=== PATIENT | female | born 1990 | race Two or more races ===

== ENCOUNTER → 2023-08-19 | Emergency (ER) | payer OTHER ==
[~2023-08-19] VITALS: Ht 149.9 cm; Wt 52.2 kg
[~2023-08-19] MED LIST: DOXYLAMINE-PYR1 EACH PO; FAMOTIDINE/PF 20 MG in 0.9 % SODIUM CHLORIDE 8 ML IV PUSH STA; ONDANSETRON HCL 2 MG/ML VIAL IV ONE; PRENATAL VITAM1 EAC7 PO; RINGERS SOLUTION,LACTATED 1,000 ML IV SCH
[2023-08-19 17:32] LABS: HEMATOCRIT 36.5 % (36.0-45.00); MEAN CELL VOLUME 89.7 fL (80.00-100.00); MEAN CORPUSCULAR HEMOGLOBIN 31.9 pg (27.00-32.0); MEAN CORPUSCULAR HGB CONC 35.6 g/dl (32.0-36.0); PLATELET COUNT 259 K/uL (150-450); RED BLOOD COUNT 4.06 M/uL (4.00-6.00); RED CELL DISTRIBUTION WIDTH 12.8 % (11.5-14.5)
[2023-08-19 17:51] LABS: ALBUMIN 3.7 gm/dL (3.4-5.0); BILIRUBIN TOTAL 0.84 mg/dL (0.3-1.2); CALCIUM 9.3 mg/dL (8.5-10.1); CREATININE SERUM 0.42 mg/dL (0.55-1.02); GFR 175.98; GLOBULINA 3.8 G/DL (2.4-3.5); POTASSIUM 3.4 mEq/L (3.5-5.1); TOTAL PROTEIN 7.5 gm/dL (6.4-8.2)
[2023-08-19 18:37] LABS: PH,URINE 6.5 (5.0-8.0); URINE APPEARANCE Cloudy; URINE BILIRRUBIN Negative (NEGATIVE); URINE BLOOD Negative; URINE COLOR Yellow; URINE GLUCOSE Negative (NEGATIVE); URINE LEUKOCYTE Negative; URINE NITRATE Negative; URINE PROTEIN Negative (NEGATIVE); URINE UROBILINOGEN 0.2 E.U./dl
[2023-08-19 18:38] LABS: URINE BACTERIA 1466.5 uL (0.0-1933); URINE EPITHELIAL CELLS 102.6 uL (0.0-38.8); URINE RBC 4.3 uL (0.0-20.8); URINE WBC 24.1 uL (0.0-23.2)
== END | disposition home or self-care (01) ==
LOC: ER 16:16
PROVIDERS: General Practice
DX: O21.0 Mild hyperemesis gravidarum (principal); Z3A.10 10 weeks gestation of pregnancy

== ENCOUNTER 2023-08-28 08:13 | Outpatient (CLI) | payer OTHER ==
[~2023-08-28 08:13] MED LIST changes: -FAMOTIDINE/PF 20 MG in 0.9 % SODIUM CHLORIDE 8 ML IV PUSH STA; -ONDANSETRON HCL 2 MG/ML VIAL IV ONE; -RINGERS SOLUTION,LACTATED 1,000 ML IV SCH
== END 2023-08-28 08:16 | disposition home or self-care (01) ==
LOC: PRENATAL 08:13
PROVIDERS: ATTEND Obstetrics & Gynecology Maternal & Fetal Medicine
DX: O36.80X0 Pregnancy with inconclusive fetal viability, not applicable or unspecified (principal); Z36.82 Encounter for antenatal screening for nuchal translucency; Z36.9 Encounter for antenatal screening, unspecified; Z3A.11 11 weeks gestation of pregnancy

== ENCOUNTER 2024-01-20 09:05 | Outpatient (CLI) | payer OTHER | END 2024-01-20 09:06 | disposition home or self-care (01) | LOC: PRENATAL 09:05 | PROVIDERS: ATTEND Obstetrics & Gynecology Maternal & Fetal Medicine | DX: O26.843 Uterine size-date discrepancy, third trimester (principal); O36.8130 Decreased fetal movements, third trimester, not applicable or unspecified; O99.013 Anemia complicating pregnancy, third trimester; Z3A.32 32 weeks gestation of pregnancy ==

== ENCOUNTER 2024-03-15 22:07 | Inpatient (IN) | payer OTHER ==
[2024-03-06 13:45] LABS: PH,URINE 6.5 (5.0-8.0); URINE APPEARANCE Cloudy; URINE BILIRRUBIN Negative (NEGATIVE); URINE BLOOD Negative; URINE COLOR Yellow; URINE GLUCOSE Negative (NEGATIVE); URINE KETONE Negative (NEGATIVE); URINE LEUKOCYTE Negative; URINE NITRATE Negative; URINE PROTEIN Negative (NEGATIVE); URINE UROBILINOGEN 0.2 E.U./dl
[2024-03-06 13:46] LABS: HEMATOCRIT 34.3 % (36.0-45.00); HEMOGLOBIN 11.7 g/dL (12.0-15.00); MEAN CELL VOLUME 90.9 fL (80.00-100.00); MEAN CORPUSCULAR HEMOGLOBIN 31.1 pg (27.00-32.0); MEAN CORPUSCULAR HGB CONC 34.2 g/dl (32.0-36.0); PLATELET COUNT 211 K/uL (150-450); RED BLOOD COUNT 3.77 M/uL (4.00-6.00); RED CELL DISTRIBUTION WIDTH 13.5 % (11.5-14.5)
[2024-03-06 13:49] LABS: URINE BACTERIA 341.4 uL (0.0-1933); URINE WBC 14.8 uL (0.0-23.2)
[2024-03-06 14:03] LABS: URINE CAST 0.15 uL (0.0-1.40); URINE RBC 1.6 uL (0.0-20.8)
[2024-03-06 14:05] LABS: INR 0.94; PARTIAL THROMBOPLASTIN TIME 24.5 SECONDS (22.0-34.0); PROTHROMBIN TIME 10.3 SECONDS (9.0-11.5)
[2024-03-06 14:09] LABS: ALBUMIN 2.7 gm/dL (3.4-5.0); BILIRUBIN TOTAL 0.4 mg/dL (0.3-1.2); CALCIUM 8.8 mg/dL (8.5-10.1); CREATININE SERUM 0.43 mg/dL (0.55-1.02); GFR 171.26; GLOBULINA 3.7 G/DL (2.4-3.5); POTASSIUM 4.1 mEq/L (3.5-5.1); TOTAL PROTEIN 6.4 gm/dL (6.4-8.2)
[~2024-03-15] VITALS: Ht 149.9 cm; Wt 63.0 kg
[2024-03-15 21:12] VITALS: BP 123/75
[2024-03-15 23:15] VITALS: BP 138/89
[2024-03-16] VITALS (12 sets, daily range): BP systolic 106–141; BP diastolic 61–86; O2SAT 100
[2024-03-16] MEDS ORDERED: OXYTOCIN 20 UNITS/1000ML RL PIGGYBAG IV ONE (02:22)
[2024-03-16] MEDS ORDERED: ERYTHROMYCIN BASE OPHT 1GM EACH TUBE OP ONE ×2 (02:22→10:30)
[2024-03-16] MEDS ORDERED: CHLORHEXIDINE GLUCONATE 120 ML BOTTLE TOP ONE (02:22)
[2024-03-16] MEDS ORDERED: LIDOCAINE HCL 1% 10ML VIAL ONE (02:22)
[2024-03-16] MEDS ORDERED: OXYTOCIN 20 UNITS/500ML RL PIGGYBAG IV ONE (07:55)
[2024-03-16] MEDS ORDERED: LIDOCAINE HCL 1% 10ML VIAL IJ ONE (10:30)
[2024-03-16] MEDS ORDERED: ACETAMINOPHEN 500 MG GEL..CAP PO PRN (12:00)
[2024-03-16] MEDS ORDERED: CHLORHEXIDINE GLUCONATE 120 ML BOTTLE TOP SCH (12:30)
[2024-03-16] MEDS ORDERED: OXYTOCIN 1,000 ML IV SCH (12:30)
[2024-03-16] MEDS ORDERED: OXYTOCIN 500 ML IV SCH (13:45)
[2024-03-16] MEDS ORDERED: BENZOCAINE/MENTHOL 90 ML BOTTLE TOP PRN (17:00)
[2024-03-16 23:17] LABS: HEMATOCRIT 26.9 % (36.0-45.00); MEAN CELL VOLUME 88.8 fL (80.00-100.00); MEAN CORPUSCULAR HGB CONC 34.8 g/dl (32.0-36.0); PLATELET COUNT 172 K/uL (150-450); RED BLOOD COUNT 3.02 M/uL (4.00-6.00); RED CELL DISTRIBUTION WIDTH 13.9 % (11.5-14.5)
[2024-03-16 23:19] LABS: HEMOGLOBIN 9.3 g/dL (12.0-15.00); MEAN CORPUSCULAR HEMOGLOBIN 30.7 pg (27.00-32.0)
[2024-03-17] VITALS: BP 106/67
[2024-03-17 08:00] VITALS: BP 101/66
[2024-03-17] MEDS ORDERED: PNV,CALCIUM 72/IRON/FOLIC ACID 1 TAB TABLET PO SCH (09:00)
[2024-03-17] MEDS ORDERED: DOCUSATE SODIUM 100MG CAP PO SCH (17:55)
[2024-03-17] MEDS ORDERED: HYDROCORTISONE ACETATE 25 MG/SUPP.RECT SUPP.RECT RECTAL SCH (17:57)
[2024-03-17] MEDS ORDERED: IBUprofen 800 MG TABLET PO PRN (18:00)
[2024-03-17 19:45] VITALS: BP 122/83
[2024-03-18] VITALS: BP 116/73
[2024-03-18 08:53] VITALS: BP 113/76
== END 2024-03-18 15:26 | disposition home or self-care (01) | DRG 807 ==
LOC: LDR 22:07 → OB/GYN 03-16 15:08 → LDR 03-16 15:22 → OB/GYN 03-18 15:26
PROVIDERS: Obstetrics & Gynecology; ADMIT Student in an Organized Health Care Education/Training Program; ATTEND Student in an Organized Health Care Education/Training Program
PROC: 4A1HXCZ Monitoring of Products of Conception, Cardiac Rate, External Approach (ICD-10-PCS; 2024-03-15)
PROC: 10E0XZZ Delivery of Products of Conception, External Approach (ICD-10-PCS; principal; 2024-03-16)
PROC: 0W8NXZZ Division of Female Perineum, External Approach (ICD-10-PCS; 2024-03-16)
DX: O80 Encounter for full-term uncomplicated delivery (principal); Z37.0 Single live birth; Z3A.39 39 weeks gestation of pregnancy; Z20.822 Contact with and (suspected) exposure to COVID-19

== ENCOUNTER 2024-08-28 22:08 | Inpatient (IN) | payer OTHER ==
[~2024-08-28] VITALS: Ht 149.9 cm; Wt 52.2 kg
[2024-08-28] MEDS ORDERED: FAMOTIDINE/PF 20 MG in 0.9 % SODIUM CHLORIDE 8 ML IV PUSH STA (22:56)
[2024-08-28] MEDS ORDERED: KETOROLAC TROMETHAMINE 30 MG VIAL IV ONE (23:00)
[2024-08-28] MEDS ORDERED: 0.9 % SODIUM CHLORIDE 1,000 ML IV SCH (23:00)
[2024-08-28] MEDS ORDERED: ONDANSETRON HCL 2 MG/ML VIAL IV ONE (23:00)
[2024-08-28] MEDS ORDERED: FAMOTIDINE/PF 20 MG/2 ML VIAL ONE (23:10)
[2024-08-28] MEDS ORDERED: ONDANSETRON HCL 2 MG/ML VIAL ONE (23:10)
[2024-08-28] MEDS ORDERED: KETOROLAC TROMETHAMINE 30 MG VIAL ONE (23:10)
[2024-08-29 00:05] LABS: HEMATOCRIT 34.8 % (36.0-45.00); MEAN CELL VOLUME 86.3 fL (80.00-100.00); MEAN CORPUSCULAR HEMOGLOBIN 29.7 pg (27.00-32.0); MEAN CORPUSCULAR HGB CONC 34.4 g/dl (32.0-36.0); PLATELET COUNT 283 K/uL (150-450); RED BLOOD COUNT 4.04 M/uL (4.00-6.00); RED CELL DISTRIBUTION WIDTH 15.2 % (11.5-14.5)
[2024-08-29 00:09] LABS: ALBUMIN 3.8 gm/dL (3.4-5.0); BILIRUBIN TOTAL 0.53 mg/dL (0.3-1.2); BILIRUBIN,CONJUGATED 0.29 mg/dL (0.0-0.2); BILIRUBIN,UNCONJUGATED 0.24 mg/dL (0.0-0.6); CREATININE SERUM 0.6 mg/dL (0.55-1.02); GFR 115.85; GLOBULINA 3.7 G/DL (2.4-3.5); POTASSIUM 3.63 mEq/L (3.5-5.1); TOTAL PROTEIN 7.5 gm/dL (6.4-8.2)
[2024-08-29] MEDS ORDERED: HYOSCYAMINE SULFATE 0.125 MG TAB.SUBL SL STA (01:42)
[2024-08-29] MEDS ORDERED: MORPHINE SULFATE 4 MG/ML VIAL IV STA (01:43)
[2024-08-29] MEDS ORDERED: HYOSCYAMINE SULFATE 0.125 MG TAB.SUBL ONE (02:06)
[2024-08-29 07:59] LABS: URINE APPEARANCE Clear; URINE BILIRRUBIN Negative (NEGATIVE); URINE BLOOD Negative; URINE COLOR Yellow; URINE GLUCOSE Negative (NEGATIVE); URINE KETONE Negative (NEGATIVE); URINE LEUKOCYTE Negative; URINE NITRATE Negative; URINE PROTEIN Negative (NEGATIVE); URINE UROBILINOGEN 0.2 E.U./dl
[2024-08-29 08:03] LABS: URINE BACTERIA 1056.1 uL (0.0-1933); URINE EPITHELIAL CELLS 27.5 uL (0.0-38.8); URINE WBC 5.3 uL (0.0-23.2)
[2024-08-29 08:14] LABS: URINE RBC 1.9 uL (0.0-20.8)
[2024-08-29] MEDS ORDERED: MORPHINE SULFATE 2 MG/ML SYRINGE IV PRN (09:45)
[2024-08-29] MEDS ORDERED: FAMOtidine 10 MG/ML (4ML VIAL) IV ONE (09:45)
[2024-08-29] MEDS ORDERED: FAMOTIDINE/PF 20 MG/2 ML VIAL ONE (11:50)
[2024-08-29 16:00] LABS: INR 1.06; PARTIAL THROMBOPLASTIN TIME 24.4 SECONDS (22.0-34.0); PROTHROMBIN TIME 11.5 SECONDS (9.0-11.5)
[2024-08-29] MEDS ORDERED: DEXTROSE 5 % AND 0.9 % NACL 1,000 ML IV SCH (16:15)
[2024-08-29] MEDS ORDERED: ENALAPRILAT DIHYDRATE 1.25 MG/ML VIAL IV PRN (16:30)
[2024-08-29] MEDS ORDERED: ACETAMINOPHEN 500 MG GEL..CAP PO PRN (16:30)
[2024-08-29] MEDS ORDERED: ONDANSETRON HCL 4 MG in DEXTROSE 5 % IN WATER 50 ML IV SCH (17:00)
[2024-08-29] MEDS ORDERED: MEPERIDINE HCL 25 MG/ML AMPUL IM SCH (18:00)
[2024-08-29] MEDS ORDERED: PIPERACILLIN/TAZOBACTAM SODIUM 3.375 GM in 0.9 % SODIUM CHLORIDE 100 ML IV SCH (18:00)
[2024-08-29 18:37] VITALS: BP 109/61
[2024-08-29] MEDS ORDERED: BUPIVACAINE HCL/MPF 0.5% 30ML VIAL ONE (19:15)
[2024-08-29] MEDS ORDERED: FAMOTIDINE/PF 20 MG in 0.9 % SODIUM CHLORIDE 8 ML IV PUSH SCH (21:00)
[2024-08-29] MEDS ORDERED: SUGAMMADEX SODIUM 200 MG/2 ML VIAL IV ONE (21:18)
[2024-08-29] MEDS ORDERED: KETOROLAC TROMETHAMINE 30 MG VIAL IV PRN (22:00)
[2024-08-29] MEDS ORDERED: ONDANSETRON HCL 2 MG/ML VIAL IV PRN (22:00)
[2024-08-29] MEDS ORDERED: MORPHINE SULFATE 4 MG/ML VIAL IV ONE ×2 (22:40→23:40)
[2024-08-29] MEDS ORDERED: PIPERACILLIN/TAZOBACTAM SODIUM 3.375 GM VIAL IV ONE (23:33)
[2024-08-30 01:17] VITALS: BP 122/84; O2SAT 97
[2024-08-30 08:26] LABS: HEMATOCRIT 37.3 % (36.0-45.00); HEMOGLOBIN 12.1 g/dL (12.0-15.00); MEAN CELL VOLUME 88.7 fL (80.00-100.00); MEAN CORPUSCULAR HEMOGLOBIN 28.9 pg (27.00-32.0); MEAN CORPUSCULAR HGB CONC 32.5 g/dl (32.0-36.0); PLATELET COUNT 246 K/uL (150-450)
[2024-08-30 08:30] LABS: PH,URINE 5.5 (5.0-8.0); URINE APPEARANCE Clear; URINE BILIRRUBIN Negative (NEGATIVE); URINE BLOOD Small; URINE COLOR Dark Yellow; URINE GLUCOSE Negative (NEGATIVE); URINE LEUKOCYTE Negative; URINE NITRATE Negative; URINE PROTEIN Negative (NEGATIVE); URINE UROBILINOGEN 0.2 E.U./dl
[2024-08-30 08:33] LABS: URINE BACTERIA 287.5 uL (0.0-1933); URINE EPITHELIAL CELLS 16.8 uL (0.0-38.8); URINE RBC 4.4 uL (0.0-20.8); URINE WBC 7.1 uL (0.0-23.2)
[2024-08-30 08:37] LABS: ERYTHROCYTE SEDIMENTATION RATE 27 mm/hr
[2024-08-30 08:39] LABS: INR 1.06; PARTIAL THROMBOPLASTIN TIME 24.8 SECONDS (22.0-34.0); PROTHROMBIN TIME 11.5 SECONDS (9.0-11.5)
[2024-08-30 08:41] LABS: URINE KETONE 80 (NEGATIVE)
[2024-08-30] MEDS ORDERED: SIMETHICONE 125 MG CAPSULE PO SCH ×2 (09:00→13:00)
[2024-08-30] MEDS ORDERED: SUCRALFATE 1 G TABLET PO SCH (09:00)
[2024-08-30 09:11] LABS: ALBUMIN 3.2 gm/dL (3.4-5.0); ALKALINE PHOSPHATASE 191 U/L (50-136); ANION GAP 14 (10.0-20.0); AST/SGOT 653 U/L (15-37); BILIRUBIN TOTAL 3.94 mg/dL (0.3-1.2); BILIRUBIN,CONJUGATED 3.23 mg/dL (0.0-0.2); BILIRUBIN,UNCONJUGATED 0.71 mg/dL (0.0-0.6); BLOOD UREA NITROGEN 6 mg/dL (7-18); BUN CREA RATIO 15 (7.0-25.0); CALCIUM 8.6 mg/dL (8.5-10.1); CARBON DIOXIDE 21 mEq/L (21-32); CHLORIDE 109 mmol/L (98-107); CHOL HDL RATIO 2.6 (0-5.0); CHOLESTEROL 163 mg/dL (0-200); CREATININE SERUM 0.41 mg/dL (0.55-1.02); GFR 179.78; GLOBULINA 3.1 G/DL (2.4-3.5); HDL 63 mg/dl (40-60); LDL 87 mg/dl (0-130); LIPASE 21 U/L (13-75); POTASSIUM 3.99 mEq/L (3.5-5.1); SODIUM 140 mmol/L (136-145); TOTAL PROTEIN 6.3 gm/dL (6.4-8.2); TRIGLYCERIDES 64 mg/dL (0-150); VLDL 12 (0-39)
[2024-08-30 09:30] LABS: HCG QUANTITATIVE < 1 mUI/mL (1-3)
[2024-08-30 09:31] LABS: ALT/SGPT 1101 U/L (12-78); C-REACTIVE PROTEIN 1.33 MG/DL (0.00-0.29); OSMOLALITY SERUM 274 MOSM/KG (275-295)
[2024-08-30 09:34] LABS: GLUCOSE FASTING 45 mg/dL (65-100)
[2024-08-30] MEDS ORDERED: GUAIFENESIN 200 MG/10 ML BLIST.PACK PO SCH (16:00)
[2024-08-30 17:22] VITALS: BP 104/66; O2SAT 99
[2024-08-30 23:53] VITALS: BP 126/73; O2SAT 99
[2024-08-31 08:00] VITALS: BP 111/76; O2SAT 97
[2024-08-31] MEDS ORDERED: LACTULOSE 20 G/30 ML BLIST.PACK PO NR (13:00)
== END 2024-08-31 14:03 | disposition home or self-care (01) | DRG 419 ==
LOC: ER 22:10 → SURG 08-29 17:42
PROVIDERS: General Practice; Surgery; ADMIT Internal Medicine; ATTEND Internal Medicine
PROC: BW40ZZZ Ultrasonography of Abdomen (ICD-10-PCS; 2024-08-28)
PROC: BW21ZZZ Computerized Tomography (CT Scan) of Abdomen and Pelvis (ICD-10-PCS; 2024-08-29)
PROC: 0FT44ZZ Resection of Gallbladder, Percutaneous Endoscopic Approach (ICD-10-PCS; principal; 2024-08-29 18:00)
DX: K80.10 Calculus of gallbladder with chronic cholecystitis without obstruction (principal); E86.0 Dehydration